=== PATIENT | female | born 1985 | race Caucasian/White ===

== ENCOUNTER → 2021-12-26 08:33 | Outpatient (CLI) | payer OTHER, SELFPAY | PROVIDERS: PCP Physician Assistant Medical; Visit Provider Physician Assistant Medical | DX: N39.0 Urinary tract infection, site not specified (principal) | CPT/HCPCS: 87086 ==

== ENCOUNTER → 2022-01-02 09:18 | Outpatient (CLI) | payer OTHER, SELFPAY | PROVIDERS: PCP Physician Assistant Medical; Visit Provider Physician Assistant Medical | DX: B37.9 Candidiasis, unspecified (principal); N10 Acute pyelonephritis | CPT/HCPCS: 87086 ==

== ENCOUNTER → 2022-01-21 15:27 | Outpatient (CLI) | payer OTHER, SELFPAY ==
[2022-01-21 19:43] LABS: Appearance Urine UA CLEAR; Bilirubin Urine UA NEGATIVE (NEGATIVE); Color Urine UA YELLOW; Glucose Urine UA NEGATIVE (Negative); Ketones Urine UA NEGATIVE (NEGATIVE); Leukocyte Esterase Urine UA NEGATIVE (NEGATIVE); Nitrite Urine UA NEGATIVE (Negative); Occult Blood Urine UA NEGATIVE (Negative); Protein Urine UA NEGATIVE (Negative); Specific Gravity Urine UA 1.015 (1.000-1.035); Urobilinogen Urine UA 0.2 E.U./dL (0.2)
[2022-01-21 19:45] LABS: pH Urine UA 6.5 (4.5-8.0)
[2022-01-21 19:59] LABS: Bacteria Urine None Seen; RBC Urine None Seen (0-5/HPF); Squamous Epithelial Cell Urine 0-1 /HPF (0-5/HPF); WBC Urine 0-1/HPF (0-5/HPF)
== END ==
PROVIDERS: PCP Physician Assistant Medical; Visit Provider Physician Assistant Medical
DX: N39.0 Urinary tract infection, site not specified (principal)
CPT/HCPCS: 81001

== ENCOUNTER → 2022-02-04 12:50 | Outpatient (CLI) | payer OTHER, SELFPAY | PROVIDERS: PCP Physician Assistant Medical; Visit Provider Physician Assistant Medical | DX: N10 Acute pyelonephritis (principal) | CPT/HCPCS: 87086 ==

== ENCOUNTER → 2022-09-16 14:12 | Outpatient (CLI) | payer OTHER, SELFPAY ==
--- NOTE | 2022-09-16 14:12 | DI.US.S_ITS ---
PROCEDURE: US OB <= 14 WK FETUS ADD GEST INDICATIONS: DATING AND VIABILITY OUTSIDE/PRIOR DATING DATA: Last menstrual period (LMP): 07/19/2022. LMP-based estimated date of delivery (MILADIS): 04/25/2023. First dating scan (date and location): 09/16/2022 Estimated date of delivery (MILADIS) from first dating scan: 05/02/2023. The calculations are made using the sonographic MILADIS of 05/02/2023. TECHNIQUE: Real-time scanning was performed of the fetuses and maternal pelvic organs, with image documentation. Endovaginal scanning: Performed for better visualization of the fetuses and maternal adnexal structures. COMPARISON: None. FINDINGS: General: An intrauterine diamniotic/ dichorionic twin is present, as evidenced by separate placental sites and/or intervening membrane thickness of greater than 2 mm at this early gestational age. Embryo A: Intrauterine gestational sac. [place]-rump length measures 1.2 centimeters, corresponding to 7 weeks 3 days. Heart rate: 153 beats per minute. Embryo B: Intrauterine gestational sac. [place]-rump length measures 1.2 centimeters, corresponding to 7 weeks 2 days. Heart rate: 153 beats per minute. Maternal organs: Ovaries unremarkable. IMPRESSION: Diamniotic, dichorionic live intrauterine gestation, at 7 weeks 3 days, MILADIS of 05/02/2023. We strive to produce accurate, complete, and clear reports of imaging services. To assist us in improving patient care, this report was composed using standard report templates and voice recognition software. Therefore, it may contain abnormal punctuation, insertions and/or omissions. Occasional wrong-word or sound-alike substitutions may occur. Though we review the report and make efforts to correct it, we do recommend that the report be read carefully in proper context to recognize any text inaccuracies. Dictated by: Twan Jolly M.D. on 09/16/2022 at 17:10 Approved by: Twan Jolly M.D. on 09/16/2022 at 17:12
== END ==
PROVIDERS: PCP Physician Assistant Medical; Referring Provider Family Medicine; Visit Provider Family Medicine
DX: Z36.87 Encounter for antenatal screening for uncertain dates (principal); Z3A.01 Less than 8 weeks gestation of pregnancy; O30.041 Twin pregnancy, dichorionic/diamniotic, first trimester
CPT/HCPCS: 76801; 76802; 76817

== ENCOUNTER → 2022-10-09 13:15 | Outpatient (CLI) | payer OTHER, SELFPAY ==
[2022-10-09 13:50] LABS: Add Manual Diff / Slide Review NO; Basophils Absolute Auto 0 /uL (0-100); Basophils Percent Auto 0.2 % (0-2); Eosinophils Absolute Auto 100 /uL (0-450); Eosinophils Percent Auto 0.8 % (2-4); Hematocrit 32.7 % (36-46); Lymphocytes Absolute Auto 1900 /uL (1100-4500); Lymphocytes Percent Auto 15.2 % (25-40); Mean Corpuscular HGB Conc 33.7 % (30-36); Mean Corpuscular Hemoglobin 29.9 PG (26-34); Mean Corpuscular Volume 88.7 fL (80-100); Monocytes Absolute Auto 700 /uL (0-900); Monocytes Percent Auto 5.9 % (3-14); Neutrophils Absolute Auto 9900 /uL (1500-7000); Neutrophils Percent Auto 77.9 % (50-75); Platelet Count 390 X10^3/uL (150-400); Red Blood Cell Count 3.68 X10^6/uL (4.0-5.2); Red Cell Distribution Width 14.1 % (11.6-14.8); White Blood Cell Count 12.7 X10^3/uL (4.5-11.0)
[2022-10-10 02:09] LABS: RPR Screen Non Reactive (Non Reactive)
[2022-10-10 09:50] LABS: Varicella IgG Antibody 1258 index (Immune >165)
[2022-10-12 09:15] LABS: HIV 1 & 2 Ab/Ag 4th Gen Combo NEGATIVE (NEGATIVE); Hep C Virus Ab w/Reflex Quant NEGATIVE s/c (NEGATIVE); Hepatitis B Surface Antigen NEGATIVE s/c (NEGATIVE); Rubella Antibody IgG 46.3 IU/mL (>15)
== END ==
PROVIDERS: PCP Physician Assistant Medical; Referring Provider Family Medicine; Visit Provider Family Medicine
DX: Z34.00 Encounter for supervision of normal first pregnancy, unspecified trimester (principal)
CPT/HCPCS: 36415; 80055; 86787; 86803; 86850; 86900; 86901; 87389

== ENCOUNTER → 2022-11-11 13:19 | Outpatient (CLI) | payer OTHER, SELFPAY ==
--- NOTE | 2022-11-11 13:20 | DI.US.S_ITS ---
PROCEDURE: US OB LIMITED INDICATIONS: CERVICAL LENGTH OUTSIDE/PRIOR DATING DATA: Last menstrual period (LMP): 07/19/2022. LMP-based estimated date of delivery (MILADIS): 04/25/2023. First dating scan (date and location): 09/16/2022. Estimated date of delivery (MILADIS) from first dating scan: 05/02/2023. The calculations are made using the ultrasound MILADIS of 05/02/2023. TECHNIQUE: Real-time scanning was performed of the fetuses, with image documentation and biometric measurements. Endovaginal scanning: Not performed COMPARISON: [facility], , OB <= 14 WK FETUS ADD GEST, 09/16/2022, 14:29. FINDINGS: General: An intrauterine dichorionic-diamniotic twin is present, as evidenced by separate placentas, differing sexes, or an intervening membrane of greater than 2 mm. Composite amniotic fluid index: 13.2 cm and 13.9 cm. Maternal cervical canal: 4.3 cm long. Normal lower limit is 2.5 cm. FETUS A: Fetus is in vertex presentation. Largest amniotic fluid pocket: 3.9 cm, normal is 2-8 cm. Placental position is posterior , without previa. heart rate: 144 beats per minute. FETUS B: Fetus in vertex presentation. Largest amniotic fluid pocket: 5.1 cm, normal is 2-8 cm. Placental position is posterior, without previa. heart rate: 149 beats per minute. IMPRESSION: 1. Dichorionic diamniotic twin . 2. Cervix is normal in length and appearance measuring 4.3 cm. We strive to produce accurate, complete, and clear reports of imaging services. To assist us in improving patient care, this report was composed using standard report templates and voice recognition software. Therefore, it may contain abnormal punctuation, insertions and/or omissions. Occasional wrong-word or sound-alike substitutions may occur. Though we review the report and make efforts to correct it, we do recommend that the report be read carefully in proper context to recognize any text inaccuracies. Dictated by: Maninder Lewis M.D. on 11/11/2022 at 17:22 Approved by: Maninder Lewis M.D. on 11/11/2022 at 17:27
== END ==
PROVIDERS: PCP Physician Assistant Medical; Referring Provider Family Medicine; Visit Provider Family Medicine
DX: Z3A.15 15 weeks gestation of pregnancy; O30.042 Twin pregnancy, dichorionic/diamniotic, second trimester
CPT/HCPCS: 76812; 76815; 76817

== ENCOUNTER 2023-01-01 14:19 | Observation (INO) | payer OTHER, SELFPAY ==
--- NOTE | 2023-01-01 14:55 | DI.US.S_ITS ---
PROCEDURE: US OB >= 14 WEEKS FETUS INDICATIONS: OB order OUTSIDE/PRIOR DATING DATA: Last menstrual period (LMP): 07/19/2022. LMP-based estimated date of delivery (MILADIS): 04/25/2023. First dating scan (date and location): 09/16/2022. Estimated date of delivery (MILADIS) from first dating scan: 05/02/2023. The calculations are made using the sonographic MILADIS of 05/02/2023. TECHNIQUE: Real-time scanning was performed of the fetuses, with image documentation. Endovaginal scanning: Not performed COMPARISON: None. FINDINGS: General: An intrauterine dichorionic-diamniotic twin is present, as evidenced by separate placentas, differing sexes, or an intervening membrane of greater than 2 mm. Amniotic fluid index (composite): 11.5 cm. Maternal cervical canal: 4.3 cm long. Normal lower limit is 2.5 cm. FETUS A: Fetus is located on the maternal left side, and is in vertex presentation. Largest amniotic fluid pocket: 3.5 cm; normal range is 2-8 cm. Placental position is posterior , without previa. heart rate: 137 beats per minute. FETUS B: Fetus is located on the maternal right side, and is in breech presentation. Largest amniotic fluid pocket: 3.1 cm; normal range is 2-8 cm. Placental position is posterior , without previa. heart rate: 137 beats per minute. IMPRESSION: Live, diamniotic, dichorionic at 22 weeks 5 days, MILADIS of 05/02/2023. We strive to produce accurate, complete, and clear reports of imaging services. To assist us in improving patient care, this report was composed using standard report templates and voice recognition software. Therefore, it may contain abnormal punctuation, insertions and/or omissions. Occasional wrong-word or sound-alike substitutions may occur. Though we review the report and make efforts to correct it, we do recommend that the report be read carefully in proper context to recognize any text inaccuracies. Dictated by: Twan Jolly M.D. on 01/01/2023 at 16:41 Approved by: Twan Jolly M.D. on 01/01/2023 at 16:45
--- NOTE | 2023-01-01 16:06 | P.CONS_ITS ---
History of Present Illness Consult details Date Patient Seen: 01/01/23 Time Patient Seen: 15:00 Chief complaint: OB Reason for consult: Twin gestation at 21 weeks with vaginal fluid leak Narrative: Patient is a 37-year-old primigravida with known twin gestations. She is currently 21 weeks EGA. Patient voided and following voiding was walking from the restroom noted a spontaneous leak of fluid from the vagina. Concerns about possibly spontaneous rupture of membranes were considered. She is currently having a unremarkable . Meds Home Medications and Allergies Home Medications Medication Instructions Recorded Confirmed Type Disabled Parking #1 ea 11/11/22 12/16/22 Rx amoxicillin 500 mg-potassium 1 tab PO BID #10 tabs 12/24/22 Rx clavulanate 125 mg tablet (Augmentin) fluconazole 150 mg tablet 150 mg PO Q3D 2 doses #2 tabs 12/25/22 Rx Allergies Allergy/AdvReac Type Severity Reaction Status Date / Time gluten AdvReac Intermediate Muscle Pain Verified 12/16/22 10:09 Milk Containing Products AdvReac Mild Gastrointestinal Verified 12/16/22 10:09 (Dairy) Upset Sulfa (Sulfonamide AdvReac Rash Verified 12/16/22 10:09 Antibiotics) Exam Const General: cooperative and healthy appearing Eyes General: appearance normal, both eyes and all related structures Conjunctivae: conjunctivae normal Sclera: sclerae normal Resp Effort & Inspection: normal respiratory effort Auscultation: clear to auscultation bilaterally Cardio Palpation: normal PMI Rate: regular rate Rhythm: regular rhythm Heart Sounds: S1 normal and S2 normal GI Inspection: normal to inspection Palpation: soft (Nontender) Skin General: no rashes or lesions noted Neuro General: patient alert, patient awake and patient oriented x3 Objective Labs Labs: AmniSure was negative for rupture of membranes. [facility] Medical History Marlene infection E coli enteritis Fibromyalgia Migraine without aura MRSA (methicillin resistant staph aureus) culture positive Oral herpes Recurrent UTI Shigella enteritis Surgical History H/O endoscopy [place] teeth extracted Family History Mother Recurrent UTI Eating disorder Depression Anxiety Alcoholism Father Family estrangement Sister Anxiety Eating disorder Brother ADHD Family/Other History of recurrent miscarriages Family/Other Congenital heart defect Grandfather Heart disease Grandmother Anxiety Diabetes mellitus Social History marital status: unmarried,living together number of children: 0 household members: significant other lives independently: Yes caregiver/support person: No housing: condominium pets and animals: Yes (dog) education level: master's degree occupational status: employed current occupational exposures/hazards: Yes special addy needs: No Safety seatbelt use: always helmet use: Yes water heater temp set < 120 deg: Yes working smoke detector in home: Yes fire extinguisher in home: Yes carbon monox detector in home: Yes firearms in home: No do you feel safe at home: Yes Tobacco & Substance Use Smoking Status: Never smoker second hand exposure: No alcohol intake: former substance use type: does not use Diet and Exercise during the past year weight has: remained stable well-balanced diet: daily or most days daily servings fruits/ve-4 caffeine: Yes (aware of 200mg linit) Type(s) of exercise: walking and other frequency: daily duration: 30-45 minutes/day Assessment & Plan Assessment and plan (1) Dichorionic diamniotic twin gestation: Qualifiers: Trimester: first trimester Qualified Code(s): O30.041 - Twin , dichorionic/diamniotic, first trimester Status: Acute (2) No leakage of amniotic fluid into vagina: Problem details: Patient had spontaneous leakage of fluid in the vagina. It was negative for amniotic fluid. Status: Acute Plan: We will continue to monitor. Ultrasound has been ordered to check for cardiac activity as well as cervical length.
[2023-01-01 16:49] LABS: Appearance Urine UA CLEAR; Bilirubin Urine UA NEGATIVE (NEGATIVE); Color Urine UA YELLOW; Glucose Urine UA NEGATIVE (Negative); Ketones Urine UA NEGATIVE (NEGATIVE); Leukocyte Esterase Urine UA NEGATIVE (NEGATIVE); Nitrite Urine UA NEGATIVE (Negative); Occult Blood Urine UA NEGATIVE (Negative); Protein Urine UA NEGATIVE (Negative); Specific Gravity Urine UA <=1.005 (1.000-1.035); Urobilinogen Urine UA 0.2 E.U./dL (0.2)
[2023-01-01 17:03] LABS: pH Urine UA 6.5 (4.5-8.0)
[2023-01-01 17:14] LABS: Bacteria Urine None Seen; Culture Indicated Urine Cult Not Indicated; RBC Urine None Seen (0-5/HPF); Squamous Epithelial Cell Urine None Seen (0-5/HPF); WBC Urine None Seen (0-5/HPF)
== END 2023-01-01 16:30 | disposition home or self-care (01) ==
PROVIDERS: Admitting Provider Obstetrics & Gynecology; PCP Physician Assistant Medical; Referring Provider Obstetrics & Gynecology; Visit Provider Obstetrics & Gynecology
DX: Z03.71 Encounter for suspected problem with amniotic cavity and membrane ruled out (principal); O30.042 Twin pregnancy, dichorionic/diamniotic, second trimester; Z3A.21 21 weeks gestation of pregnancy
CPT/HCPCS: 76815; 76816; 81001; 84112; G0378; G0379

== ENCOUNTER → 2023-01-20 10:51 | Outpatient (CLI) | payer OTHER, SELFPAY ==
[2023-01-20 12:42] LABS: Add Manual Diff / Slide Review NO; Basophils Absolute Auto 0 /uL (0-100); Basophils Percent Auto 0.3 % (0-2); Eosinophils Absolute Auto 200 /uL (0-450); Eosinophils Percent Auto 1.1 % (2-4); Hematocrit 33.4 % (36-46); Hemoglobin 11.2 g/dL (12.0-16.0); Lymphocytes Absolute Auto 1800 /uL (1100-4500); Mean Corpuscular HGB Conc 33.5 % (30-36); Mean Corpuscular Hemoglobin 29.5 PG (26-34); Mean Corpuscular Volume 87.9 fL (80-100); Monocytes Absolute Auto 800 /uL (0-900); Monocytes Percent Auto 5.5 % (3-14); Neutrophils Absolute Auto 12000 /uL (1500-7000); Neutrophils Percent Auto 81.1 % (50-75); Platelet Count 314 X10^3/uL (150-400); Red Cell Distribution Width 13.8 % (11.6-14.8); White Blood Cell Count 14.8 X10^3/uL (4.5-11.0)
[2023-01-20 12:51] LABS: Appearance Urine UA CLEAR; Bilirubin Urine UA NEGATIVE (NEGATIVE); Color Urine UA YELLOW; Glucose Urine UA NEGATIVE (Negative); Ketones Urine UA NEGATIVE (NEGATIVE); Leukocyte Esterase Urine UA NEGATIVE (NEGATIVE); Nitrite Urine UA NEGATIVE (Negative); Occult Blood Urine UA NEGATIVE (Negative); Protein Urine UA NEGATIVE (Negative); Urobilinogen Urine UA 0.2 E.U./dL (0.2)
[2023-01-20 12:53] LABS: pH Urine UA 7.5 (4.5-8.0)
[2023-01-20 13:09] LABS: GTT (PREG) 1 Hour PP 50gm Dose 103 mg/dL (76-139)
[2023-01-20 13:14] LABS: Bacteria Urine None Seen; Culture Indicated Urine Cult Not Indicated; RBC Urine None Seen (0-5/HPF); Squamous Epithelial Cell Urine None Seen (0-5/HPF); WBC Urine None Seen (0-5/HPF)
== END ==
PROVIDERS: PCP Physician Assistant Medical; Referring Provider Family Medicine; Visit Provider Family Medicine
DX: Z34.00 Encounter for supervision of normal first pregnancy, unspecified trimester (principal); R30.0 Dysuria
CPT/HCPCS: 36415; 81001; 82950; 85025; 86850

== ENCOUNTER 2023-03-15 11:50 | Outpatient (CLI) | payer OTHER, SELFPAY | END 2023-03-15 12:33 | disposition home or self-care (01) | LOC: LABOR 12:14 → OB 03-19 10:26 | PROVIDERS: PCP Physician Assistant Medical; Referring Provider Family Medicine; Visit Provider Family Medicine | DX: O30.043 Twin pregnancy, dichorionic/diamniotic, third trimester (principal); Z3A.33 33 weeks gestation of pregnancy | CPT/HCPCS: 36415; 59025; 82950; 85025; 86850; G0378; G0379 ==

== ENCOUNTER → 2023-03-15 12:14 | Outpatient (CLI) | payer OTHER, SELFPAY ==
[2023-03-15 14:48] LABS: Add Manual Diff / Slide Review NO; Basophils Absolute Auto 0 /uL (0-100); Basophils Percent Auto 0.2 % (0-2); Eosinophils Absolute Auto 100 /uL (0-450); Eosinophils Percent Auto 0.7 % (2-4); Hematocrit 32.7 % (36-46); Hemoglobin 11.2 g/dL (12.0-16.0); Lymphocytes Absolute Auto 1400 /uL (1100-4500); Lymphocytes Percent Auto 11.3 % (25-40); Mean Corpuscular HGB Conc 34.2 % (30-36); Mean Corpuscular Hemoglobin 29.7 PG (26-34); Mean Corpuscular Volume 86.9 fL (80-100); Monocytes Absolute Auto 800 /uL (0-900); Monocytes Percent Auto 6.8 % (3-14); Neutrophils Absolute Auto 9900 /uL (1500-7000); Platelet Count 211 X10^3/uL (150-400); Red Blood Cell Count 3.76 X10^6/uL (4.0-5.2); Red Cell Distribution Width 14.2 % (11.6-14.8); White Blood Cell Count 12.3 X10^3/uL (4.5-11.0)
[2023-03-15 15:18] LABS: GTT (PREG) 1 Hour PP 50gm Dose 133 mg/dL (76-139)
== END ==
PROVIDERS: PCP Physician Assistant Medical; Referring Provider Family Medicine; Visit Provider Family Medicine
DX: O30.049 Twin pregnancy, dichorionic/diamniotic, unspecified trimester (principal)
CPT/HCPCS: 36415; 82950; 85025; 86850

== ENCOUNTER 2023-03-24 10:31 | Outpatient (CLI) | payer OTHER, SELFPAY ==
--- NOTE | 2023-03-24 11:34 | P.TNLD_ITS ---
Visit Information Visit Information Date of evaluation: 03/24/23 Primary OB Provider: Marianela Brownlee Comments/Additional reasons for admission: 37yo at 34w3d here for NST for di-di twin gestation. [facility] Medical History Marlene infection E coli enteritis Fibromyalgia Migraine without aura MRSA (methicillin resistant staph aureus) culture positive Oral herpes Recurrent UTI Shigella enteritis Surgical History H/O endoscopy [place] teeth extracted Family History Mother Recurrent UTI Eating disorder Depression Anxiety Alcoholism Father Family estrangement Sister Anxiety Eating disorder Brother ADHD Family/Other History of recurrent miscarriages Family/Other Congenital heart defect Grandfather Heart disease Grandmother Anxiety Diabetes mellitus Social History marital status: unmarried,living together number of children: 0 household members: significant other lives independently: Yes caregiver/support person: [facility] pets and animals: Yes (dog) education level: master's degree occupational status: employed current occupational exposures/hazards: Yes special addy needs: No seatbelt use: always helmet use: Yes water heater temp set < 120 deg: Yes working smoke detector in home: Yes fire extinguisher in home: Yes carbon monox detector in home: Yes firearms in home: No do you feel safe at home: Yes Smoking Status: Never smoker second hand exposure: No alcohol intake: former substance use type: does not use during the past year weight has: remained stable well-balanced diet: daily or most days daily servings fruits/ve-4 caffeine: Yes (aware of 200mg linit) Type(s) of exercise: walking and other frequency: daily duration: 30-45 minutes/day Evaluation Evaluation Comments: Twin A - Baseline 130, moderate variability, accels present, no decels Twin B - Baseline 130, moderate variability, accels present, no decels [place] - no contractions Diagnosis, Plan/Disposition Final Diagnosis (1) Dichorionic diamniotic twin gestation: Status: Acute Plan/Disposition Plan: 37yo at 34w3d here for NST for di-di twin gestation. NST reactive. Stable for d/c home. OB Disposition: home
== END 2023-03-24 11:30 | disposition home or self-care (01) ==
LOC: LABOR 10:48 → OB 03-30 06:17
PROVIDERS: PCP Physician Assistant Medical; Referring Provider Family Medicine; Visit Provider Family Medicine
DX: O30.043 Twin pregnancy, dichorionic/diamniotic, third trimester (principal); Z3A.34 34 weeks gestation of pregnancy
CPT/HCPCS: 59025; G0378; G0379

== ENCOUNTER 2023-04-01 10:27 | Outpatient (CLI) | payer OTHER, SELFPAY | END 2023-04-01 11:14 | disposition home or self-care (01) | LOC: LABOR 11:28 → OB 04-06 08:50 | PROVIDERS: PCP Physician Assistant Medical; Referring Provider Family Medicine; Visit Provider Family Medicine | DX: O30.003 Twin pregnancy, unspecified number of placenta and unspecified number of amniotic sacs, third trimester (principal); O09.513 Supervision of elderly primigravida, third trimester; Z3A.35 35 weeks gestation of pregnancy | CPT/HCPCS: 59025; G0378; G0379 ==

== ENCOUNTER → 2023-04-07 11:57 | Outpatient (CLI) | payer OTHER, SELFPAY ==
[2023-04-08 13:59] LABS: Strep Grp B PCR NEG for Grp B Strep
== END ==
PROVIDERS: PCP Physician Assistant Medical; Visit Provider Family Medicine
DX: Z34.00 Encounter for supervision of normal first pregnancy, unspecified trimester (principal)
CPT/HCPCS: 87653

== ENCOUNTER 2023-04-07 12:34 | Outpatient (CLI) | payer OTHER, SELFPAY ==
--- NOTE | 2023-04-07 13:09 | P.TNLD_ITS ---
Visit Information Visit Information Date of evaluation: 04/07/23 Primary OB Provider: Marianela Brownlee Comments/Additional reasons for admission: 37yo at 36w3d here for NST for di-di twin gestation. [facility] Medical History Marlene infection E coli enteritis Fibromyalgia Migraine without aura MRSA (methicillin resistant staph aureus) culture positive Oral herpes Recurrent UTI Shigella enteritis Surgical History H/O endoscopy [place] teeth extracted Family History Mother Recurrent UTI Eating disorder Depression Anxiety Alcoholism Father Family estrangement Sister Anxiety Eating disorder Brother ADHD Family/Other History of recurrent miscarriages Family/Other Congenital heart defect Grandfather Heart disease Grandmother Anxiety Diabetes mellitus Social History marital status: unmarried,living together number of children: 0 household members: significant other lives independently: Yes caregiver/support person: No housing: [facility] pets and animals: Yes (dog) education level: master's degree occupational status: employed current occupational exposures/hazards: Yes special addy needs: No seatbelt use: always helmet use: Yes water heater temp set < 120 deg: Yes working smoke detector in home: Yes fire extinguisher in home: Yes carbon monox detector in home: Yes firearms in home: No do you feel safe at home: Yes Smoking Status: Never smoker second hand exposure: No alcohol intake: former substance use type: does not use during the past year weight has: remained stable well-balanced diet: daily or most days daily servings fruits/ve-4 caffeine: Yes (aware of 200mg linit) Type(s) of exercise: walking and other frequency: daily duration: 30-45 minutes/day Evaluation Evaluation Comments: Twin A: Baseline 120, moderate variability, accels present, no decels Twin B: Baseline 120, moderate variability, accels present, no decels Diagnosis, Plan/Disposition Final Diagnosis (1) Dichorionic diamniotic twin gestation: Status: Acute Plan/Disposition Plan: 37yo at 36w3d here for NST for di-di twin gestation. NST reactive. Stable for d/c home. OB Disposition: home
== END 2023-04-07 13:13 | disposition home or self-care (01) ==
LOC: LABOR 12:44 → OB 04-12 06:48
PROVIDERS: PCP Physician Assistant Medical; Referring Provider Family Medicine; Visit Provider Family Medicine
DX: O30.043 Twin pregnancy, dichorionic/diamniotic, third trimester (principal); Z3A.36 36 weeks gestation of pregnancy; Z34.00 Encounter for supervision of normal first pregnancy, unspecified trimester
CPT/HCPCS: 59025; 87653; G0378; G0379

== ENCOUNTER 2023-04-13 10:32 | Outpatient (CLI) | payer OTHER, SELFPAY ==
[2023-04-13 11:56] LABS: Alanine Aminotransferase 26 IU/L (<35); Albumin 3.2 g/dL (3.5-5.0); Albumin Globulin Ratio 1.1 (1.0-2.8); Alkaline Phosphatase 221 U/L (38-126); Aspartate Aminotransferase 33 IU/L (14-36); BUN Creatinine Ratio 13.6 (6-22); Bilirubin Total 0.4 mg/dL (0.2-1.3); Blood Urea Nitrogen 9 mg/dL (7-17); Calcium 8.8 mg/dL (8.4-10.2); Carbon Dioxide 18 mmol/L (22-32); Chloride 109 mmol/L (98-107); Estimated Glomerular Filt Rate > 60 mL/min (>60); Glucose 79 mg/dL (70-100); HEMOLYSIS < 15 (0-50); Sodium 136 mmol/L (137-145); Total Protein 6.2 g/dL (6.3-8.2)
[2023-04-14 12:12] LABS: Bile Acids 9.7 umol/L (0.0-10.0)
== END 2023-04-13 11:44 | disposition home or self-care (01) ==
LOC: LABOR 11:01 → OB 04-15 10:28
PROVIDERS: PCP Physician Assistant Medical; Referring Provider Family Medicine; Visit Provider Family Medicine
DX: O30.003 Twin pregnancy, unspecified number of placenta and unspecified number of amniotic sacs, third trimester (principal); Z3A.37 37 weeks gestation of pregnancy
CPT/HCPCS: 59025; 80053; 82239; G0378; G0379

== ENCOUNTER 2023-04-14 12:48 | Inpatient (IN) | payer OTHER, SELFPAY ==
[2023-04-14 13:05] VITALS: BP 118/73
--- NOTE | 2023-04-14 13:06 | PM.OBHP.IH.1 ---
OB HPI Date/Time Date of admission: 04/14/23 Date Patient Seen: 04/14/23 History of Present Condition Chief complaint: INPT C SECTION MILADIS Calculator Estimated Delivery Date Method Current WG Current Estimate 05/02/23 Manual 37w 3d Final MILADIS - VIKKI Other Estimates 04/25/23 LMP (Certain) 38w 3d 05/02/23 Ultrasound #1 37w 3d # 2 Estimated Gestational Age (weeks): 37w3d : 1 Para: 0 Narrative: 38yo at 37w3d here for scheduled primary for di-di twin presentation with twin A breech. Pt denies any vaginal bleeding or LOF. She has had mild intermittent contractions. Her has been complicated by the di-di twin gestation, with twin A FGR at the 8th percentile with normal dopplers. care: good care, initiated at week # (10) and pounds weight gain (60) Dating criteria OB: based on 1st trimester US only Ultrasounds: normal 1st trimester US (di-di twin gestation) and normal mid trimester US Obstetrical complications: growth restriction (Twin A) Indications Operative indications ( section): breech presentation Preadmission Labs Last OB Lab Results: Blood Type O Positive 04/14/23 13:42 Antibody Screen Negative 04/14/23 13:42 Hematocrit 34.7 % (36-46) L 04/14/23 13:42 Hemoglobin 11.7 g/dL (12.0-16.0) L 04/14/23 13:42 Hepatitis B Surface Antigen Negative s/c (NEGATIVE) 10/09/22 13:18 Hepatitis C Antibody Negative s/c (NEGATIVE) 10/09/22 13:18 Rubella Antibody 46.3 IU/mL (>15) 10/09/22 13:18 Varicella-Zoster IgG Antibody 1258 index (Immune >165) 10/09/22 13:18 Glucose 1 Hour 133 mg/dL (76-139) 03/15/23 12:46 Group B Streptococcus (PCR) Neg for grp b strep 04/07/23 11:57 -: Urine: negative External Labs -: Urine: negative Evaluation Evaluation Category of Tracing: Reactive Comments: Twin A: Baseline 120, moderate variability, accels present, no decels Twin B: Baseline 120, moderate variability, accels present, no decels PFSH Medical History Marlene infection E coli enteritis Fibromyalgia Migraine without aura MRSA (methicillin resistant staph aureus) culture positive Oral herpes Recurrent UTI Shigella enteritis Surgical History H/O endoscopy [place] teeth extracted Family History Mother Recurrent UTI Eating disorder Depression Anxiety Alcoholism Father Family estrangement Sister Anxiety Eating disorder Brother ADHD Family/Other History of recurrent miscarriages Family/Other Congenital heart defect Grandfather Heart disease Grandmother Anxiety Diabetes mellitus Social History marital status: unmarried,living together number of children: 0 household members: significant other lives independently: Yes caregiver/support person: No housing: condominium pets and animals: Yes (dog) education level: master's degree occupational status: employed current occupational exposures/hazards: Yes special addy needs: No seatbelt use: always helmet use: Yes water heater temp set < 120 deg: Yes working smoke detector in home: Yes fire extinguisher in home: Yes carbon monox detector in home: Yes firearms in home: No do you feel safe at home: Yes Smoking Status: Never smoker second hand exposure: No alcohol intake: former substance use type: does not use during the past year weight has: remained stable well-balanced diet: daily or most days daily servings fruits/ve-4 caffeine: Yes (aware of 200mg linit) Type(s) of exercise: walking and other frequency: daily duration: 30-45 minutes/day Meds Home Medications and Allergies Home Medications Medication Instructions Recorded Confirmed Type Disabled Parking #1 ea 11/11/22 04/13/23 Rx valacyclovir 500 mg tablet 500 mg PO DAILY #30 tabs 03/24/23 04/14/23 Rx Allergies Allergy/AdvReac Type Severity Reaction Status Date / Time gluten AdvReac Intermediate Muscle Pain Verified 04/13/23 11:58 Milk Containing Products AdvReac Mild Gastrointestinal Verified 04/13/23 11:58 (Dairy) Upset Sulfa (Sulfonamide AdvReac Rash Verified 04/13/23 11:58 Antibiotics) OB Exam Resp Effort & Inspection: normal respiratory effort Auscultation: clear to auscultation bilaterally Cardio Rate: regular rate Rhythm: regular rhythm Heart Sounds: S1 normal, S2 normal and no murmurs GI Inspection: non-distended Palpation: Yes soft and No tender Assessment and Plan Assessment and Plan Assessment and Plan narrative: 38yo at 37w3d here for scheduled primary for di-di twin presentation with twin A breech. complicated additionally by FGR in Twin A, 8th percentile. GBS negative, Rh positive. Consent reviewed with the pt, previously signed in clinic. Risks including but not limited to bleeding/hemorrhage, infection, injury to other organs such as bowel/bladder, injury to fetus were discussed. The pt agrees to blood transfusion if medically necessary. SCDs to be placed prior to surgery. Pt will receive 2g Ancef prior to surgery. The pt desires vaginal seeding of her infants.
[2023-04-14] MEDS: LACTATED RINGERS 1,000 ML 999 ML IV (13:45)
[2023-04-14 13:58] LABS: Add Manual Diff / Slide Review NO; Basophils Absolute Auto 0 /uL (0-100); Basophils Percent Auto 0.2 % (0-2); Eosinophils Absolute Auto 100 /uL (0-450); Eosinophils Percent Auto 0.5 % (2-4); Hematocrit 34.7 % (36-46); Hemoglobin 11.7 g/dL (12.0-16.0); Lymphocytes Absolute Auto 1600 /uL (1100-4500); Lymphocytes Percent Auto 12.7 % (25-40); Mean Corpuscular HGB Conc 33.7 % (30-36); Mean Corpuscular Hemoglobin 29.2 PG (26-34); Mean Corpuscular Volume 86.7 fL (80-100); Monocytes Absolute Auto 700 /uL (0-900); Monocytes Percent Auto 5.4 % (3-14); Neutrophils Absolute Auto 10200 /uL (1500-7000); Neutrophils Percent Auto 81.2 % (50-75); Platelet Count 169 X10^3/uL (150-400); Red Cell Distribution Width 14.2 % (11.6-14.8); White Blood Cell Count 12.5 X10^3/uL (4.5-11.0)
[2023-04-14] MEDS: CITRIC ACID/SODIUM CITRATE 15 ML SOLUTION 30 ML PO (14:28)
--- NOTE | 2023-04-14 17:16 | SUR.OPER ---
Supine on Padded OR bed, head on pillow, safety belt at thigh, arms secured on padded arm boards at <90 degrees abduction. Bump under right buttock. Legs uncrossed with pillow under knees, gel pad to heels, tape over blanket to lower legs.
--- NOTE | 2023-04-14 17:26 | SUR.OPER ---
Viable male di-di twins delivered via section: Baby A (breech) at 17:20, Baby B at 17:23. Cord blood x2 and placenta x2 sent with OB RN.
[2023-04-14 18:09] VITALS: BP 110/72; PULSE 83; RESP 13; TEMP 36.2; O2SAT 97
--- NOTE | 2023-04-14 18:11 | PM.OBCS.1 ---
Operative Date/Time/Diagnoses Date of procedure: 04/15/23 Time of procedure: 17:00 Pre-op diagnosis: 37w3d gestation GBS negative Rh positive Di-Di twin gestation FGR twin A Twin A breech presentation Post-op diagnosis: same Procedure & Clinicians Procedure: Primary Same procedure as scheduled: Yes Indications: Di-Di twin gestation, twin A breech Surgeon: Marianela Brownlee Soaker Meat: Shana Barr Anesthesia Type: Spinal Operative Notes Findings: Normal uterus, ovaries, and tubes Closure Type: primary Specimen(s): cord blood Intraoperative meds administered: Duramorph, Ketorolac and Pitocin Applied: Catheter Estimated Blood Loss (mL): 600 Blood products transfused: none Procedure in detail: OPERATIVE COURSE: The patient was taken to the operating room where spinal anesthesia was placed. She was then prepared and draped in the normal sterile fashion in the dorsal supine position with a leftward tilt. Anesthesia was tested and found to be adequate. A Pfannensteil skin incision was then made with the scalpel and carried through to the underlying layer of fascia with the scalpel. The fascia was incised in the midline and the incision extended laterally with the Muniz scissors. The superior aspect of the fascial incision was then grasped with Guadalupe clamps, elevated with the help of the surgical scrub technician, and the underlying rectus muscles dissected off bluntly and sharply where needed. Attention was then turned to the inferior aspect of the incision which, in a similar fashion, was grasped, tented up with Guadalupe clamps, and the rectus muscle dissected off bluntly and sharply with Muniz scissors. The rectus muscles were then in the midline, and the peritoneum was identified and entered bluntly. The peritoneal incision was then extended with good visualization of the bladder. Retraction was provided by the surgical scrub technician. The bladder blade was then inserted and the vesicouterine peritoneum identified, grasped with pick-ups and entered sharply with the Metzenbaum scissors. The incision was then extended laterally and the bladder flap created digitally. The bladder blade was then reinserted and the lower uterine segment incised in a transverse fashion with the scalpel, with the surgical scrub technician providing suction. The uterine incision was then extended superolaterally by pulling superolaterally on both sides. Membranes were ruptured and fluid was clear. The bladder blade was removed the buttock was delivered and the remainder of the baby delivered instantly without assistance. The nose and mouth were suctioned with bulb suction and the cord was clamped and cut after 1 minute. The infant was handed off to the waiting nursing staff. Cord blood was collected for Rh status. Baby B was then delivered from vertex presentation after amniotic sac was ruptured with clear fluid present, with fundal pressure from the assistant front office manager. The cord was cut and clamped after 1 minute, and the was handed off to waiting nursing staff. Cord blood was collected for Rh status. The placenta was then delivered with gentle cord traction, then manual extraction for the 2nd placenta. The uterus was then exteriorized and cleared of all clots and debris. The uterine incision was repaired with O-Vicryl in a running, locked fashion. A second layer of the same suture was used to obtain excellent hemostasis. The uterus was returned to the abdomen. The gutters were cleared of all clots. Hysterotomy was investigated and found to be hemostatic. The peritoneum was closed with 3-O Vicryl. The fascia was reapproximated with O Vicryl in a running fashion. The subcutaneous tissue was reapproximated with 3-O Vicryl. The skin was closed with 4-O Vicryl. The surgical scrub technician helped with retraction during closures. SPONGE AND NEEDLE COUNTS: Correct x3. DRESSING: Aquacel ANTICOAGULATION: SCDs applied prior to Surgery Preop antibiotics given (see MAR). The patient was taken to recovery room having tolerated procedure well. [place] Baby 2: Gender: Male Presentation: vertex Placental Delivery Description: Manual Removal Cord Vessel Description: 3 Vessels score (1 min): 9 score (5 min): 9 weight: 4 lb 13.426 oz 1: Gender: Male Presentation: breech Placental Delivery Description: Spontaneous Cord Vessel Description: 3 Vessels score (1 min): 9 score (5 min): 9 weight: 5 lb 3.564 oz Post-operative Condition: stable Disposition: PACU Aftercare: routine postop
[2023-04-14 18:14] VITALS: PULSE 74; RESP 12; O2SAT 96
[2023-04-14 18:17] VITALS: BP 98/57; PULSE 65; RESP 19; O2SAT 97
[2023-04-14 18:23] VITALS: BP 107/75; PULSE 73; RESP 15; O2SAT 98
[2023-04-14 18:28] VITALS: BP 98/70; PULSE 69; RESP 13; TEMP 36.1; O2SAT 96
--- NOTE | 2023-04-14 18:47 | SUR.PHASEI ---
OPHELIA Patrick in recovery with patient and babies. Report given to Celina. Fundus and pad checked and changed with OPHELIA. Robb and IV patent.
[2023-04-14] MEDS: METHYLERGONOVINE 0.2 MG/ML VIAL IM (18:50)
[2023-04-14] MEDS: OXYTOCIN PREMIX 30 UNIT/500 ML PLAST..BAG 200 UNIT IV (18:50)
[2023-04-14] MEDS: HYDROMORPHONE 0.5 MG INJ 0.2 MG IV (22:11)
[2023-04-14] MEDS: diphenhydrAMINE 50 MG/ML VIAL 25 MG IV (22:11)
[2023-04-15] MEDS: KETOROLAC 30 MG/ML VIAL IV ×3 (00:35→13:42)
[2023-04-15] MEDS: HYDROMORPHONE 0.5 MG INJ 0.2 MG IV (00:36)
[2023-04-15] MEDS: ACETAMINOPHEN 325 MG TABLET 650 MG PO ×3 (04:39→18:05)
[2023-04-15 05:40] LABS: Add Manual Diff / Slide Review NO; Basophils Absolute Auto 0 /uL (0-100); Basophils Percent Auto 0.3 % (0-2); Eosinophils Absolute Auto 100 /uL (0-450); Eosinophils Percent Auto 0.8 % (2-4); Hematocrit 26.3 % (36-46); Lymphocytes Absolute Auto 1900 /uL (1100-4500); Lymphocytes Percent Auto 14.1 % (25-40); Mean Corpuscular HGB Conc 34.2 % (30-36); Mean Corpuscular Hemoglobin 29.8 PG (26-34); Mean Corpuscular Volume 87.1 fL (80-100); Monocytes Absolute Auto 900 /uL (0-900); Monocytes Percent Auto 6.6 % (3-14); Neutrophils Absolute Auto 10400 /uL (1500-7000); Neutrophils Percent Auto 78.2 % (50-75); Platelet Count 146 X10^3/uL (150-400); Red Blood Cell Count 3.02 X10^6/uL (4.0-5.2); Red Cell Distribution Width 14.1 % (11.6-14.8); White Blood Cell Count 13.2 X10^3/uL (4.5-11.0)
[2023-04-15] MEDS: OXYCODONE IR 5 MG TABLET PO ×3 (07:13→20:26)
[2023-04-15] MEDS: PRENATAL VIT,CALC/IRON/FOLIC 1 TABLET 1 TAB PO (10:15)
[2023-04-15] MEDS: DOCUSATE 100 MG CAPSULE PO (10:39)
--- NOTE | 2023-04-15 12:57 | P.PNOB_ITS ---
Subjective - OB Subjective Narrative: Patient reports that she is doing well. Her lochia is decreasing appropriately. She has ambulated once. She has not yet voided or passed flatus. She is her twins with good latch. Baby B has more issues staying latched than Baby A. Exam Vital Signs (past 8 hours): Oxygen Delivery Method Room Air Resp Auscultation: clear to auscultation bilaterally Cardio Rate: regular rate Rhythm: regular rhythm Heart Sounds: S1 normal, S2 normal and no murmurs GI Inspection: non-distended and incision (dressing c/d/i) Palpation: soft, No guarding and tender (appropriately tender) Auscultation: normal bowel sounds Other: fundus firm and below the umbilicus Extrem Right upper extremity: no edema Objective Labs 04/15/23 05:35 Labs: Laboratory Results - last 24 hr 04/14/23 04/15/23 13:42 05:35 WBC 12.5 H 13.2 H RBC 4.00 3.02 L Hgb 11.7 L 9.0 L Hct 34.7 L 26.3 L MCV 86.7 87.1 MCH 29.2 29.8 MCHC 33.7 34.2 RDW 14.2 14.1 Plt Count 169 146 L Neut % (Auto) 81.2 H 78.2 H Lymph % (Auto) 12.7 L 14.1 L [place] % (Auto) 5.4 6.6 Eos % (Auto) 0.5 L 0.8 L Baso % (Auto) 0.2 0.3 Neut # (Auto) 24685 H 46089 H Lymph # (Auto) 1600 1900 [place] # (Auto) 700 900 Eos # (Auto) 100 100 Baso # (Auto) 0 0 Blood Type O Positive Antibody Screen Negative Assessment & Plan Plan Comments: Pt is a 38yo POD#1 s/p primary of di-di twins without complications. Pt doing well. - Normal care - support Time Spent With Patient Time: Total time spent is greater than 50% in coordination of care (as documented) at patient's floor/unit and/or counseling patient: Time with patient: 15-24 minutes
[2023-04-15] MEDS: IBUPROFEN 600 MG TABLET PO (19:48)
[2023-04-15] MEDS: LANOLIN OINT 7 GM 1 APPLIC TOP (19:50)
[2023-04-16] MEDS: ACETAMINOPHEN 325 MG TABLET 650 MG PO ×4 (00:27→18:29)
[2023-04-16] MEDS: OXYCODONE IR 5 MG TABLET PO ×4 (00:28→21:10)
[2023-04-16] MEDS: IBUPROFEN 600 MG TABLET PO ×4 (01:45→21:10)
[2023-04-16] MEDS: PRENATAL VIT,CALC/IRON/FOLIC 1 TABLET 1 TAB PO (07:47)
--- NOTE | 2023-04-16 08:30 | PM.OBPN.1 ---
Subjective - OB Subjective Interval history: The pt reports that her LE swelling has increased significantly. No pain in her legs. Her lochia continues to decrease appropriately. She has not yet passed flatus. She has voided and ambulated minimally. She is with good latch. Exam Vital Signs (past 8 hours): Oxygen Delivery Method Room Air Narrative Exam Narrative: Gen: NAD, sitting comfortably in bed, appears well CV: RRR, no murmurs Resp: clear to auscultation bilaterally Abd: soft, slightly distended, normoactive bowel sounds, dressing c/d/i, appropriately tender Ext: 2+ pitting edema bilateral LE Objective Labs 04/15/23 05:35 Assessment & Plan Plan Comments: Pt is a 38yo POD#2 s/p primary of di-di twins without complications. Pt with increased swelling, bilateral, low concern for DVT. Has not yet passed flatus. - Normal care - support - Encourage ambulation, leg elevation today - Stool softeners Time Spent With Patient Time: Total time spent is greater than 50% in coordination of care (as documented) at patient's floor/unit and/or counseling patient: Time with patient: less than 15 minutes
[2023-04-16] MEDS: BISACODYL 5 MG TABLET PO (09:25)
[2023-04-17] MEDS: ACETAMINOPHEN 325 MG TABLET 650 MG PO ×3 (00:06→12:08)
[2023-04-17] MEDS: LORATADINE 10 MG TABLET PO (00:06)
[2023-04-17] MEDS: IBUPROFEN 600 MG TABLET PO ×2 (03:11→09:36)
[2023-04-17] MEDS: OXYCODONE IR 5 MG TABLET PO ×2 (03:11→09:36)
[2023-04-17] MEDS: DOCUSATE 100 MG CAPSULE PO (09:36)
[2023-04-17] MEDS: PRENATAL VIT,CALC/IRON/FOLIC 1 TABLET 1 TAB PO (09:36)
--- NOTE | 2023-04-17 10:30 | P.DS_ITS ---
Discharge Providers Provider Date of admission: 04/14/23 12:48 Discharge Date: 04/19/23 Primary care physician: Sania Martinez PA-C Consults: 04/14/23 18:50 Consult to [employer] Routine Comment: Discharge provider: Marianela Brownlee MD Summary Hospital Course Date Patient Seen: 04/17/23 Diagnoses: 37w3d gestation GBS negative Rh positive Di-Di twin gestation FGR twin A Twin A breech presentation Hospital Course: The pt presented for primary due to breech presentation Twin A, and FGR. The surgery was without complications, and she delivered two viable baby boys. , there were no complications. At the time of discharge she was voiding, ambulating, and passing flatus without difficulty. Her lochia was decreasing appropriately. Her pain was well controlled. She was both babies with good latch. She will f/u in 6 weeks for check. Peripartum Data Infant Delivery Method: Section Procedures: Primary complications: none [place] 1: Gender: Male Disposition of : home 2: Gender: Male Disposition of : home Status at Discharge Cognitive/behavioral status at discharge: oriented Functional status at discharge: independent ambulation Overall status at discharge: patient is progressing back to baseline Time Spent with Patient Time attestation: Total time spent providing and/or coordinating discharge services: Objective Labs 04/15/23 05:35 Exam Vital Signs (past 8 hours): Oxygen Delivery Method Room Air Resp Auscultation: clear to auscultation bilaterally Cardio Rate: regular rate Rhythm: regular rhythm Heart Sounds: S1 normal, S2 normal and no murmurs GI Inspection: non-distended and incision (dressing c/d/i) Palpation: soft, No guarding and tender (appropriately tender) Auscultation: normal bowel sounds Other: fundus firm and below the umbilicus Extrem Right upper extremity: no edema Discharge Plan Discharge Plan Patient Disposition: Home Discharge orders & Medications Prescriptions: New acetaminophen 325 mg Tablet 650 mg PO Q6H Qty: 60 0RF docusate sodium 100 mg Capsule 100 mg PO DAILY Qty: 30 0RF ibuprofen 600 mg Tablet 600 mg PO Q6H Qty: 60 0RF oxycodone 5 mg Tablet 5 mg PO Q4H PRN (Reason: Pain, Moderate (4-6)) Qty: 30 0RF Discontinued valacyclovir 500 mg tablet 500 mg PO DAILY Qty: 30 1RF No Action (DME) Disabled Parking See Rx Instructions .ROUTE .MEDSUPPLY Qty: 1 0RF Rx Instructions: I find this patient to be medically disabled and qualified for Disabled Parking as indicated, and signed, on the Accompanying Disabled Parking Application for Individuals Follow up/Referrals: Marianela Brownlee MD [Physician] - (Incision check w/ Dr. Brownlee: Wednesday, @ 2:15pm) Diet/Activity/Treatments Diet: Diet as Tolerated and Regular Skin/Wound/Dressing Care Report to your healthcare provider any signs of infection, such as:: chills, fever, increased pain and unusual drainage Visit Report/Discharge Packet Instructions: DI for Stand Alone Forms: Discharge: Care, Patient Portal/API, Stroke Signs & Symptoms Discharge Data Primary Care Provider: Sania Martinez Discharges patient from system. Discharge Date/Time: 04/17/23 14:30
[2023-04-17 11:24] VITALS: BP 120/67; PULSE 85; RESP 15; TEMP 36.6
== END 2023-04-17 14:30 | disposition home or self-care (01) | DRG 788 ==
PROVIDERS: Admitting Provider Family Medicine; PCP Physician Assistant Medical; Referring Provider Family Medicine; Visit Provider Family Medicine
PROC: (CPT 59514; principal; 2023-04-14 14:45)
DX: O32.8XX1 Maternal care for other malpresentation of fetus, fetus 1 (principal); O36.5931 Maternal care for other known or suspected poor fetal growth, third trimester, fetus 1; O30.043 Twin pregnancy, dichorionic/diamniotic, third trimester; Z37.2 Twins, both liveborn; Z3A.37 37 weeks gestation of pregnancy
CPT/HCPCS: 36415; 59025; 59050; 59510; 59514; 80053; 82239; 85025; 86850; 86900; 86901; J1170; J1200; J1885; J2210; J2274; J2405; J2590

== ENCOUNTER → 2023-06-22 11:31 | Outpatient (CLI) | payer OTHER, MEDICAID, SELFPAY ==
--- NOTE | 2023-06-22 11:32 | DI.US.S_ITS ---
PROCEDURE: US PELVIC COMPLETE INDICATIONS: WORSENING BLEEDING 9 WEEKS POST TECHNIQUE: Real-time scanning was performed of the pelvic organs, with image documentation. Additional endovaginal scanning was necessary due to incomplete visualization of the adnexal and endometrial structures by transabdominal scanning. COMPARISON: None. FINDINGS: Uterus: 10.9 x 5.4 x 4.3 cm. Moderate to large collection within the endometrium and lower uterine segment without significant vascularity. The IUD is seen within this collection. Total volume is about 115 cc. Ovaries: Nonenlarged bilaterally Other: No pathologic free fluid. IMPRESSION: Moderate to large collection, which may represent a hematoma, within the lower endometrium/lower uterine segment. The IUD is seen within this collection. This could represent a hematoma. Consider surveillance imaging to assess any underlying retained products. No significant vascularity on color Doppler on today's study. Dictated by: Leo Mcclendon M.D. on 06/22/2023 at 13:02 Approved by: Leo Mcclendon M.D. on 06/22/2023 at 13:09
[2023-06-22 12:21] LABS: Add Manual Diff / Slide Review NO; Basophils Absolute Auto 0 /uL (0-100); Basophils Percent Auto 0.4 % (0-2); Eosinophils Absolute Auto 100 /uL (0-450); Hemoglobin 12.2 g/dL (12.0-16.0); Lymphocytes Absolute Auto 3600 /uL (1100-4500); Lymphocytes Percent Auto 28.4 % (25-40); Mean Corpuscular HGB Conc 33.1 % (30-36); Mean Corpuscular Hemoglobin 28.4 PG (26-34); Mean Corpuscular Volume 85.7 fL (80-100); Monocytes Absolute Auto 1000 /uL (0-900); Monocytes Percent Auto 8.1 % (3-14); Neutrophils Absolute Auto 8000 /uL (1500-7000); Neutrophils Percent Auto 62.1 % (50-75); Platelet Count 423 X10^3/uL (150-400); Red Blood Cell Count 4.32 X10^6/uL (4.0-5.2); Red Cell Distribution Width 15.5 % (11.6-14.8); White Blood Cell Count 12.8 X10^3/uL (4.5-11.0)
== END ==
PROVIDERS: PCP Family Medicine; Referring Provider Family Medicine; Visit Provider Family Medicine
DX: N93.9 Abnormal uterine and vaginal bleeding, unspecified (principal); N92.0 Excessive and frequent menstruation with regular cycle; Z97.5 Presence of (intrauterine) contraceptive device
CPT/HCPCS: 36415; 76830; 76856; 85025

== ENCOUNTER 2023-06-28 11:36 | Day surgery (SDC) | payer OTHER, MEDICAID, SELFPAY ==
[2023-06-28] VITALS (9 sets, daily range): BP systolic 95–114; BP diastolic 59–84; PULSE 68–95; RESP 13–97; TEMP 36.1–36.6; O2SAT 98–99; BMI 31.1
--- NOTE | 2023-06-28 | PATH_ITS ---
[facility] Accession Number: [id number] No. of containers..01 Tissue . 01 Material submitted: . endometrium - ENDOMETRIAL CURETTINGS . 01 Diagnosis: ENDOMETRIAL CURETTINGS: Portions of endometrial tissue with prominent active inflammation and patchy stromal breakdown; cannot completely exclude acute endometritis, in the appropriate clinical setting. Please correlate with clinical findings. Negative for glandular hyperplasia, cytologic atypia, or malignancy. Possible fragments of benign placental site nodule. Poorly preserved tissue fragment with possible intermediate trophoblasts, suggestive of, but not definitive for, retained products of conception; please correlate with clinical and laboratory findings. V 07/02/2023 1525 Local . 01 Electronically signed: . Alva Garcia MD, Pathologist NPI- [id number] . 01 Gross description: . ENDOMETRIAL CURETTINGS: Received in formalin are minute fragments of mucoid and hemorrhagic material measuring 3.5 x 3.5 x 0.3 cm in aggregate. Submitted in toto in 3 cassettes. /TAMMY 06/30/2023 0105 Local . 01 Pathologist provided ICD-10: N85.00 . 01 CPT . 608573 Specimen Comment: A courtesy copy of this report has been sent to [phone] Performed at: 01 [facility] [address], [place], [place] [id number] MD Chad Kumar MD Phone: [phone]
[2023-06-28] MEDS: LACTATED RINGERS 1,000 ML 84 ML IV ×2 (12:07→13:25)
--- NOTE | 2023-06-28 12:21 | PM.GYNHP.1 ---
History of Present Illness History of Present Illness Reason for admission: vaginal bleeding (Since delivery) Narrative: Maddie Saab is a 38 year old female 1 para 1 with IUD malpositioned in the lower uterine segment, and a large clot in the uterus. She presents for removal of IUD, suction D and C, and replacement of new Mirena IUD. [facility] Medical History (Updated 06/22/23 @ 14:19 by Marianela Brownlee MD) Dichorionic diamniotic twin gestation Recurrent UTI Migraine without aura Oral herpes MRSA (methicillin resistant staph aureus) culture positive Shigella enteritis E coli enteritis Fibromyalgia Marlene infection Surgical History (Updated 06/28/23 @ 07:50 by Rachell Suarez RN) S/P (04/14/23) [place] teeth extracted H/O endoscopy Family History Mother Recurrent UTI Eating disorder Depression Anxiety Alcoholism Father Family estrangement Sister Anxiety Eating disorder Brother ADHD Family/Other History of recurrent miscarriages Family/Other Congenital heart defect Grandfather Heart disease Grandmother Anxiety Diabetes mellitus Social History marital status: unmarried,living together number of children: 0 household members: significant other and children lives independently: Yes caregiver/support person: No housing: condominium pets and animals: Yes (dog) education level: master's degree occupational status: employed current occupational exposures/hazards: Yes special addy needs: No seatbelt use: always helmet use: Yes water heater temp set < 120 deg: Yes working smoke detector in home: Yes fire extinguisher in home: Yes carbon monox detector in home: Yes firearms in home: No do you feel safe at home: Yes Smoking Status: Never smoker second hand exposure: No alcohol intake: former substance use type: does not use during the past year weight has: remained stable well-balanced diet: daily or most days daily servings fruits/ve-4 caffeine: Yes (aware of 200mg linit) Type(s) of exercise: walking and other frequency: daily duration: 30-45 minutes/day Meds Home Medications and Allergies Home Medications Medication Instructions Recorded Confirmed Type Disabled Parking #1 ea 11/11/22 06/25/23 Rx acetaminophen 325 mg tablet 650 mg (2 x 325 mg) PO Q6H #60 tabs 04/17/23 06/28/23 Rx ibuprofen 600 mg tablet 600 mg PO Q6H #60 tabs 04/17/23 06/28/23 Rx Allergies Allergy/AdvReac Type Severity Reaction Status Date / Time chlorhexidine Allergy Severe Rash/hives Verified 06/28/23 11:42 gluten AdvReac Intermediate Muscle Pain Verified 06/28/23 11:42 Milk Containing Products AdvReac Mild Gastrointestinal Verified 06/28/23 11:42 (Dairy) Upset Sulfa (Sulfonamide AdvReac Rash Verified 06/28/23 11:42 Antibiotics) Exam Vital Signs (past 8 hours): - 06/28/23 12:08 Temperature 97.8 F Pulse Rate 84 Respiratory Rate 97 H Blood Pressure 105/84 Oxygen Delivery Method Nasal Cannula Oxygen Delivery Method Nasal Cannula Narrative Exam Narrative: HEENT: No thyromegaly, no anterior cervical or supraclavicular lymphadenopathy. Lungs:Clear to auscultation bilaterally, no wheezes. Cardiovascular: Regular rate and rhythm, no murmurs, rubs, or gallops. Abdomen: Well-healed Pfannenstiel scars. No hepatosplenomegaly. No masses palpable. External genitalia: Normal Vagina: Normal Cervix: Normal Bimanual exam: 10 Week size uterus. Mobile. Extremities: No edema Ultrasound in the office on June 25, 2023 showed a large clot in the uterus and the Mirena IUD in the lower uterine segment. Assessment & Plan Assessment & Plan narrative: Assessment: 38-year-old 1 para 1 with persistent bleeding since her section in March Ultrasound shows Mirena IUD in the lower uterine segment Ultrasound also shows large clot in the uterus Plan: Removal of Mirena IUD, suction D&C, placement of new Mirena IUD The risks, benefits, and alternatives to the procedure were explained to the patient. The risks including bleeding, infection, and uterine perforation. She understands these risks and agrees to proceed. A full par Q was held and consent form was signed.
[2023-06-28] MEDS: SCOPOLAMINE 1 PATCH TOP (12:24)
--- NOTE | 2023-06-28 12:28 | PM.PREOP ---
Pre-operative Note Interval Note History & Physical reviewed/Exam performed by Physician: Yes Changes to H&P: No H&P completed within 30 days and has changed as indicated here:: 06/28/23
--- NOTE | 2023-06-28 13:01 | PM.GYNOP.1 ---
Operative Date/Time/Diagnoses Date of procedure: 06/28/23 Time of procedure: 13:01 Pre-op diagnosis: IUD malpositioned Persistent bleeding after delivery Post-op diagnosis: same Procedure & Clinicians Procedure: Procedures Operation Date: 06/28/23 12:45 Actual Procedure Side Surgeon p Intrauterine Device Removal & replace Krystal Galvan MD p suction D&C Krystal Galvan MD Indications: 38 year old with persistent bleeding and a malpositioned IUD Surgeon: Krystal Galvan Anesthesia Type: General (LMA) Operative Notes Findings: 10 wk size uterus IUD in the lower uterine segment Purulent fluid in the endometrium Closure Type: not applicable Specimen(s): other (cultures of uterine fluid) Estimated blood loss (mL): 100 Blood products transfused: none Procedure in detail: After informed consent was obtained, the patient was taken to the operating room where she was placed in the dorsal supine position. After adequate LMA general anesthesia was achieved, she was placed in the dorsal lithotomy position, and prepped and draped in the usual sterile fashion. A time-out was performed. A bivalve speculum was placed into the vagina and the anterior lip of the cervix was grasped with a single-tooth tenaculum. The IUD strings were grasped and it was removed without difficulty. There was a small gush of yellow/purulent fluid. Cultures were taken of the endometrial fluid. The cervical os was sequentially dilated until the # 10 curved plastic curette could pass easily into the endometrial cavity. Several passes with suction revealed a large amount of fluid and blood. No sharp curettage was performed. The instruments were removed from the uterus. Single-tooth tenaculum was removed from the anterior lip of the cervix. The bivalve speculum was removed from the vagina. Sponge, lap, and instrument counts were correct x2. The patient tolerated the procedure well, and was taken to PACU in stable condition. A new IUD was not placed due to the presence of infection in the uterus Complications: none Post-operative Condition: stable Disposition: PACU Plan for aftercare: Home after recovery
[2023-06-28] MEDS: ACETAMINOPHEN IV 1,000 MG/100 ML VIAL 400 MG IV (13:24)
[2023-06-28] MEDS: OXYCODONE IR 5 MG TABLET PO (13:58)
--- NOTE | 2023-06-28 14:23 | SUR.PHASEII ---
Pt pad and chux changed. Dr Galvan called and informed that patient had softball sized clot out at 1330. At 1415 pt korina pad and chux changed with large plate sized amt of blood on chux and 1/3-1/3 of korina pad with bloody drainage and clot in vagina. See new order for CBC STAT now. Continue to watch bleeding. stated bleeding is to be expected due to blood/clots in OR.
--- NOTE | 2023-06-28 14:44 | SUR.PHASEII ---
Spouse updated with patient status.
[2023-06-28 14:46] LABS: Add Manual Diff / Slide Review NO; Basophils Absolute Auto 0 /uL (0-100); Basophils Percent Auto 0.1 % (0-2); Eosinophils Absolute Auto 100 /uL (0-450); Eosinophils Percent Auto 0.6 % (2-4); Hematocrit 36.7 % (36-46); Hemoglobin 11.8 g/dL (12.0-16.0); Lymphocytes Absolute Auto 1300 /uL (1100-4500); Lymphocytes Percent Auto 7.4 % (25-40); Mean Corpuscular HGB Conc 32.2 % (30-36); Mean Corpuscular Hemoglobin 28.4 PG (26-34); Mean Corpuscular Volume 88.2 fL (80-100); Monocytes Absolute Auto 400 /uL (0-900); Monocytes Percent Auto 2.5 % (3-14); Neutrophils Absolute Auto 15400 /uL (1500-7000); Neutrophils Percent Auto 89.4 % (50-75); Platelet Count 409 X10^3/uL (150-400); Red Blood Cell Count 4.16 X10^6/uL (4.0-5.2); Red Cell Distribution Width 15.3 % (11.6-14.8); White Blood Cell Count 17.3 X10^3/uL (4.5-11.0)
--- NOTE | 2023-06-28 14:58 | SUR.PHASEII ---
Attempt to reach Dr. Galvan on cell or triage unsuccessful.
--- NOTE | 2023-06-28 15:28 | SUR.PHASEII ---
Dr. Galvan updated regarding CBC, BP and patient status. Patient's vaginal bleeding moderate to large. VS stable. Patient may discharge per Dr. Galvan. Patient updated and was able to dress independently.
== END 2023-06-28 15:16 | disposition home or self-care (01) ==
PROVIDERS: PCP Family Medicine; Referring Provider Obstetrics & Gynecology; Visit Provider Obstetrics & Gynecology
PROC: (CPT 59160; principal; 2023-06-28 12:45)
PROC: (CPT 58120; 2023-06-28 12:45)
DX: N71.9 Inflammatory disease of uterus, unspecified (principal); N93.8 Other specified abnormal uterine and vaginal bleeding; T83.32XA Displacement of intrauterine contraceptive device, initial encounter; Z30.433 Encounter for removal and reinsertion of intrauterine contraceptive device
CPT/HCPCS: 59160; 58301; 36415; 85025; 87070; 87075; 87076; 87077; 87185; 87205; J0136; J0690; J1100; J1885; J2250; J2405; J2704

== ENCOUNTER → 2023-10-06 14:45 | Outpatient (CLI) | payer OTHER, MEDICAID, SELFPAY | PROVIDERS: PCP Family Medicine; Visit Provider Nurse Practitioner Adult Health | DX: B37.9 Candidiasis, unspecified (principal) | CPT/HCPCS: 87798; 87801 ==

== ENCOUNTER → 2024-02-09 13:04 | Outpatient (CLI) | payer OTHER, SELFPAY | PROVIDERS: PCP Family Medicine; Visit Provider Nurse Practitioner Adult Health | DX: N76.0 Acute vaginitis (principal) | CPT/HCPCS: 87798; 87801 ==

== ENCOUNTER → 2024-04-06 11:06 | Outpatient (CLI) | payer OTHER, SELFPAY | PROVIDERS: PCP Family Medicine; Visit Provider Obstetrics & Gynecology | DX: N89.8 Other specified noninflammatory disorders of vagina (principal) | CPT/HCPCS: 87070; 87205; 87480; 87510; 87660 ==